=== PATIENT | female | born 1960 | race Caucasian/White ===

== ENCOUNTER 2020-12-28 15:08 | Emergency (ER) | payer OTHER ==
[~2020-12-28] VITALS: Ht 165.1 cm; Wt 79.4 kg
[2020-12-28 16:00] VITALS: BP 150/85
[2020-12-28] MEDS ORDERED: traMADol 50 MG TAB PO ONE (17:20)
[2020-12-28 18:13] LABS: BASOPHILS % (AUTO) 0.5 % (0.0-2.0); EOSINOPHILS # (AUTO) 0.1 K/uL (0-0.4); EOSINOPHILS % (AUTO) 1.5 % (0.0-4.0); HEMATOCRIT 39.5 % (36-48); HEMOGLOBIN 13.1 g/dL (12.0-16.0); LYMPHOCYTES # (AUTO) 1.8 K/uL (2.5-16.5); LYMPHOCYTES % (AUTO) 26.3 % (20.5-51.1); MEAN CORPUSCULAR HEMOGLOBIN 29 pg (27-31); MEAN CORPUSCULAR HGB CONC 33 g/dL (33-37); MONOCYTES # (AUTO) 0.6 K/uL (0.8-1.0); MONOCYTES % (AUTO) 8.9 % (1.7-9.3); NEUTROPHILS # (AUTO) 4.2 K/uL (1.8-7.7); NEUTROPHILS % (AUTO) 62.8 % (42.2-75.2); PLATELET COUNT (AUTO) 278 K/uL (140-450); RED BLOOD CELL COUNT(AUTO) 4.54 MIL/uL (4.20-5.40); RED CELL DISTRIBUTION WIDTH 13.5 % (11.6-13.7); WHITE BLOOD COUNT (AUTO) 6.8 K/uL (4.8-10.8)
[2020-12-28 18:24] LABS: APPEARANCE,URINE CLEAR (CLEAR); BILIRUBIN,URINE NEGATIVE (NEGATIVE); BLOOD, URINE 1+ (NEGATIVE); COLOR,URINE STRAW (YELLOW); LEUKOCYTE ESTERASE ,URINE NEGATIVE (NEGATIVE); NITRITE, URINE NEGATIVE (NEGATIVE); PH,URINE 5.5 (5.0-9.0); UGLUCOSE NEGATIVE (NEGATIVE)
[2020-12-28 18:36] LABS: ANION GAP 10.1 (8-16); CARBON DIOXIDE 27.9 mmol/L (21-32); CREATININE 0.8 mg/dL (0.6-1.3); TOTAL BILIRUBIN 0.4 mg/dL (0.0-1.0)
[2020-12-28 18:41] LABS: RBC,URINE 0-5 /HPF (0-5); WBC,URINE NONE SEEN /HPF (0-5)
[2020-12-28] MEDS ORDERED: NAPR-54 PO (18:44)
--- NOTE | 2020-12-28 18:50 | NUR ---
60 YO F C/O HYPOGASTRIC AND LEFT-SIDED ABDOMINAL PAIN RADIATING TO LOWER BACK. 8/10, SHARP PAIN REPORTED. PT WENT TO URGENT CARE 3 DAYS AGO, PRESCRIBED WITH MACROBID FOR UTI AND IBUPROFEN. LAST IBUPROFEN TAKEN AT 8PM LAST NIGHT. DENIES DYSURIA, HEMATURIA. DENIES N/V/D. PMH: HYPOTHYROID MEDS: LEVOTHYROXINE NKA
[2020-12-28] MEDS ORDERED: traMADol 50 MG TAB ONE (18:56)
--- NOTE | 2020-12-28 19:03 | NUR ---
Patient reports she has a ride home; transportation ETA 5 minutes.
[2020-12-28 19:06] VITALS: BP 149/79
--- NOTE | 2020-12-28 19:07 | NUR ---
PT REPORTS POSITIVE RELIEF TO PAIN 6/10 AT THIS TIME.
== END 2020-12-28 19:09 | disposition home or self-care (01) ==
LOC: MED 15:08
DX: R31.9 Hematuria, unspecified (principal); R10.30 Lower abdominal pain, unspecified
CPT/HCPCS: 36415; 80053; 81001; 85025; 99284